=== PATIENT | female | born 1945 | race Asian ===

== ENCOUNTER 2018-10-03 23:03 | Emergency (ER) | payer OTHER, BC ==
[2018-10-03 23:06] VITALS: BP 92/47; PULSE 66; TEMP 98.2; BMI 28.0
--- NOTE | 2018-10-04 00:48 | PDOC ---
History of Present Illness - General Chief Complaint: Lightheaded Stated Complaint: DIZZINESS Time Seen by Provider: 10/04/18 00:48 - History of Present Illness Initial Comments: 73 year old female with pmh of ESRD (PD), HTN, HLD, CAD (s/p stents 9 years prior), and CHF presenting with lightheadedness after standing up around 18:00 that has continued whenever she stood afterward. Denied any nausea, vomiting, diarrhea, chest pain, SOB, headache, syncope, or other symptoms. States this only happened when standing and she felt well when laying down or sitting. 10/04/18 01:04 Past History - Past Medical History Allergies/Adverse Reactions: Allergies Allergy/AdvReac Type Severity Reaction Status Date / Time No Known Allergies Allergy Verified 10/04/18 01:05 Home Medications: Ambulatory Orders Aspirin [Adult Aspirin] 81 mg PO DAILY 10/04/18 Atorvastatin Ca [Lipitor] 80 mg PO DAILY 10/04/18 Carvedilol [Coreg -] 25 mg PO BID 10/04/18 Citalopram Hydrobromide [Celexa -] 40 mg PO DAILY 10/04/18 Ergocalciferol [Vitamin D2] 50,000 unit PO Q15D 10/04/18 Ferric Citrate [Auryxia] 210 mg PO BID 10/04/18 Ferrous Sulfate [Feosol] 325 mg PO BID 10/04/18 Furosemide [Lasix -] 40 mg PO BID 10/04/18 Insulin (Novolog 70/30) [Novolog Mix 70/30 Vial] 28 ml SQ HS 10/04/18 Insulin (Novolog 70/30) [Novolog Mix 70/30 Vial] 38 ml SQ AM 10/04/18 Isosorbide Mononitrate [Imdur -] 60 mg PO DAILY 10/04/18 Liraglutide [Victoza -] 1.8 mg SQ DAILY@0700 10/04/18 Losartan Potassium [Cozaar -] 50 mg PO DAILY 10/04/18 Multivit-Min/Iron/Folic/Lutein [Centrum Silver Women Tablet] 1 each PO DAILY Cardiac Disorders: Yes COPD: No Diabetes: Yes Dialysis: Yes HTN: Yes Hypercholesterolemia: Yes Psychiatric Problems: Yes (depression) - Suicide/Smoking/Psychosocial Hx Smoking History: Never smoked Have you smoked in the past 12 months: No Information on smoking cessation initiated: No Hx Alcohol Use: No Drug/Substance Use Hx: No Review of Systems - Review of Systems Constitutional: No: Chills, Diaphoresis, Fever, Loss of Appetite Respiratory: No: Cough, Orthopnea, Shortness of Breath, Stridor Cardiac (ROS): Yes: Lightheadedness. No: Chest Pain, Edema, Irregular Heart Rate, Palpitations, Syncope, Chest Tightness ABD/GI: No: Diarrhea, Nausea, Vomiting : No: Dysuria, Discharge, Frequency, Pain Musculoskeletal: No: Joint Pain, Joint Swelling, Muscle Pain Integumentary: No: Lesions, Lumps Neurological: Yes: Weakness. No: Numbness, Paresthesia, Tremors Psychiatric: No: Anxiety, Depression Hematologic/Lymphatic: No: Anemia, Blood Clots, Easy Bleeding *Physical Exam - Vital Signs Last Vital Signs Temp Pulse Resp BP Pulse Ox 98.2 F 66 18 92/47 L 98 10/03/18 23:04 10/03/18 23:04 10/03/18 23:04 10/03/18 23:04 10/03/18 23:04 - Physical Exam General Appearance: Yes: Nourished, Appropriately Dressed. No: Apparent Distress HEENT: positive: EOMI, KAPIL, Normal ENT Inspection, Normal Voice Neck: positive: Trachea midline, Normal Thyroid, Supple. negative: Tender, Rigid Respiratory/Chest: positive: Lungs Clear, Normal Breath Sounds. negative: Chest Tender, Respiratory Distress Cardiovascular: negative: Regular Rhythm, Regular Rate Gastrointestinal/Abdominal: positive: Soft. negative: Normal Bowel Sounds, Tender, Flat Lymphatic: negative: Adenopathy, Tenderness Musculoskeletal: positive: Normal Inspection. negative: Decreased Range of Motion Extremity: positive: Normal Capillary Refill, Normal Inspection, Normal Range of Motion. negative: Tender Integumentary: positive: Normal Color, Dry, Warm Neurologic: positive: Fully Oriented, Alert, Normal Mood/Affect, Normal Response , Motor Strength 5/5 Moderate Sedation - Procedure Monitoring Vital Signs: Procedure Monitoring Vital Signs Temperature 98.2 F 10/03/18 23:04 Pulse Rate 66 10/03/18 23:04 Respiratory Rate 18 10/03/18 23:04 Blood Pressure 92/47 L 10/03/18 23:04 O2 Sat by Pulse Oximetry (%) 98 10/03/18 23:04 ED Treatment Course - LABORATORY CBC & Chemistry Diagram: 10/04/18 02:52 10/04/18 02:52 Medical Decision Making - Medical Decision Making 73 year old with a transient episode of lightheadedness and weakness in the setting of two days of lasix usage (After not using them for weeks) and poor po intake. She did not syncopize. Labs WNL with the exception of troponin of 0.06 x2 (likely due to renal insufficiency) and EKG not demonstrating acute ST elevations, long qt, or signs of brugada. This was likely due to the dehydratin acutely from the diuretics nad the poor po intake today. She was able to eat and ambulate without symptoms after po hydration. Will DC with return precautions and follow up instructions. 10/04/18 05:55 *DC/Admit/Observation/Transfer Diagnosis at time of Disposition: Lightheadedness - Discharge Dispostion Disposition: HOME Condition at time of disposition: Improved Decision to Admit order: No - Referrals Referrals: Jaylon Espinoza MD [Primary Care Provider] - - Patient Instructions Printed Discharge Instructions: DI for Muscle Weakness Additional Instructions: Please eat food regularly and please only use one dose of Lasix per day until you follow up with Dr. Espinoza. Please return to the Ed if you have new or worsening symptoms. - Post Discharge Activity
--- NOTE | 2018-10-04 00:54 | PDOC ---
Attending Attestation - HPI HPI: 10/04/18 03:27 The patient is a 73 year old female, with a significant past medical history of ESRD (PD), HTN, HLD, CAD (s/p stents 9 years ago), and CHF, who presents to the emergency department with, lightheadedness. As per patient, the episode occurred after standing up, prompting her arrival to the ED. - Physicial Exam PE: 10/04/18 03:42 Agree with resident exam. <Neil Hogan - Last Filed: 10/04/18 03:42> - Resident Resident Name: Zari Villa - ED Attending Attestation I have performed the following: I have examined & evaluated the patient, The case was reviewed & discussed with the resident, I agree w/resident's findings & plan - Medical Decision Making 10/04/18 04:24 73-year-old female currently on peritoneal dialysis complaining of lightheadedness. Due to patient's renal status po fluids were encouraged in the emergency department First troponin was mildly elevated, plan for second troponin and if no significant change we'll discharge home to follow up with primary care Patient has no chest pain or shortness of breath or any additional symptoms to suggest cardiac involvement at this time Impression lightheadedness End stage renal disease on peritoneal dialysis. EKG shows a normal sinus rhythm at 77 bpm with no acute ST elevations <Nadja Pandey - Last Filed: 10/04/18 04:30> Attestations - Attestations 10/04/18 03:28 Documentation prepared by Neil Hogan, acting as senior medical transcriptionist for Nadja Pandey DO. <Neil Hogan - Last Filed: 10/04/18 03:42>
[2018-10-04 03:13] LABS: BASO % 0.5 % (0-2.0); EOS % 6.4 % (0-4.5); HEMATOCRIT 31.9 % (32.4-45.2); HEMOGLOBIN 10.6 GM/dL (10.7-15.3); LYMPH % 21.5 % (8-40); MCH 27.3 pg (25.7-33.7); MCHC 33.4 g/dl (32.0-36.0); MEAN CELL VOLUME 81.6 fl (80-96); MEAN PLT VOLUME 11.5 fl (7.5-11.1); NEUT % 66.6 % (42.8-82.8); PLATELET COUNT 124 K/MM3 (134-434); RDW 15.4 % (11.6-15.6); WHITE BLOOD COUNT 13.3 K/mm3 (4.0-10.0)
[2018-10-04 03:41] LABS: ALBUMIN 2.4 g/dl (3.4-5.0); ALK PHOS 123 U/L (45-117); ANION GAP 12 MMOL/L (8-16); BILIRUBIN,TOTAL 0.2 mg/dL (0.2-1); BLOOD UREA NITROGEN 45 mg/dL (7-18); CALCIUM 7.8 mg/dL (8.5-10.1); CHLORIDE 102 mmol/L (98-107); CO2 25 mmol/L (21-32); CREATININE 3.7 mg/dL (0.55-1.3); GLUCOSE,RANDOM 273 mg/dL (74-106); POTASSIUM 3.3 mmol/L (3.5-5.1); SGOT/AST 17 U/L (15-37); SGPT/ALT 22 U/L (13-61); SODIUM 139 mmol/L (136-145); TOT PROT 5.8 g/dl (6.4-8.2)
--- NOTE | 2018-10-04 10:00 | EKG ---
Test Reason : Blood Pressure : / mmHG Vent. Rate : 077 BPM Atrial Rate : 077 BPM P-R Int : 188 ms QRS Dur : 120 ms QT Int : 532 ms P-R-T Axes : 057 029 085 degrees QTc Int : 602 ms NORMAL SINUS RHYTHM INCOMPLETE LEFT BUNDLE BRANCH BLOCK ABNORMAL ECG NO PREVIOUS ECGS AVAILABLE Confirmed by KHADAR SALEH MD ([id number]) on 10/04/2018 10:00:37 AM Also confirmed by KHADAR SALEH MD ([id number]) on 10/04/2018 10:00:49 AM Referred By: Confirmed By:KHADAR SALEH MD
== END 2018-10-04 06:16 | disposition home or self-care (01) ==
LOC: JER 23:03
DX: R42 Dizziness and giddiness (principal); I25.10 Atherosclerotic heart disease of native coronary artery without angina pectoris; I13.2 Hypertensive heart and chronic kidney disease with heart failure and with stage 5 chronic kidney disease, or end stage renal disease; N18.6 End stage renal disease; I50.9 Heart failure, unspecified; Z99.2 Dependence on renal dialysis; Z95.5 Presence of coronary angioplasty implant and graft; E11.9 Type 2 diabetes mellitus without complications; Z79.4 Long term (current) use of insulin; E78.00 Pure hypercholesterolemia, unspecified; F32.9 Major depressive disorder, single episode, unspecified
CPT/HCPCS: 36415; 80053; 84484; 85025; 93005; 93010; 99281-25; 99283-25

== ENCOUNTER 2019-05-02 20:35 | Emergency (ER) | payer OTHER, BC ==
[2019-05-02 20:45] VITALS: BP 193/92; PULSE 103; TEMP 98.4; BMI 27.3
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
== END 2019-05-02 23:15 | disposition home or self-care (01) ==
LOC: JERFT 20:35
DX: S09.90XA Unspecified injury of head, initial encounter (principal); S16.1XXA Strain of muscle, fascia and tendon at neck level, initial encounter; V43.52XA Car driver injured in collision with other type car in traffic accident, initial encounter; Y93.89 Activity, other specified; Y92.410 Unspecified street and highway as the place of occurrence of the external cause; M25.561 Pain in right knee; I10 Essential (primary) hypertension; E78.00 Pure hypercholesterolemia, unspecified; F32.9 Major depressive disorder, single episode, unspecified; E11.9 Type 2 diabetes mellitus without complications; Z99.2 Dependence on renal dialysis
CPT/HCPCS: 70450-TC; 72125-TC; 99282-25